=== PATIENT | female | born 1940 | race Caucasian/White ===

== ENCOUNTER 2021-11-24 18:21 | Inpatient (IN) | payer MEDICARE ==
[2021-11-24] MEDS ORDERED: Sodium Chloride 0.9% 10 ML Syringe FLUSH PRN (18:39)
[2021-11-24] MEDS ORDERED: Sodium Chloride 0.9% 1,000 ML IV ONE (19:47)
[2021-11-24 19:53] LABS: CORONAVIRUS COVID-19 NAA NEGATIVE (NEGATIVE)
[2021-11-24] MEDS ORDERED: cefTRIAXone 2 GM in Sodium Chloride 0.9% 100 ML IV ONE (20:07)
[2021-11-24] MEDS ORDERED: Azithromycin 250 MG Tab PO ONE (20:08)
[2021-11-24] MEDS ORDERED: Potassium Chloride 10 MEQ in Premix Bag 1 BAG IV SCH (20:15)
[2021-11-24] MEDS ORDERED: Sodium Chloride 0.9% 10 ML Syringe FLUSH ONE (20:28)
[2021-11-24] MEDS ORDERED: Iopamidol 755 Mg/ML 100 ML Bottle IVPUSH ONE (20:28)
[2021-11-24] MEDS ORDERED: Sodium Chloride 0.9% 100 ML IV SCH (20:30)
[2021-11-24] MEDS ORDERED: Docusate Sodium 100 MG Cap PO PRN (21:24)
[2021-11-24] MEDS ORDERED: Acetaminophen 325 MG Tab PO PRN (21:24)
[2021-11-24] MEDS ORDERED: oxyCODONE 5 MG Tab PO PRN (21:24)
[2021-11-24] MEDS ORDERED: Zolpidem 5 MG Tab PO PRN (21:24)
[2021-11-24] MEDS ORDERED: Dextrose 5%-0.45% NaCl 1,000 ML IV SCH (21:30)
[2021-11-24] MEDS: Enoxaparin 40 MG/0.4 ML Syringe SUBCUT SCH (23:12)
[2021-11-25] MEDS: Albuterol/Ipratropium 3.0-0.5 MG/3 ML Neb Soln NEB SCH ×4 (02:40→21:14)
[2021-11-25] MEDS: Codeine/guaiFENesin 10-100 MG/5 ML Syrup 5 ML Cup PO PRN ×3 (04:25→15:05)
[2021-11-25] MEDS: Azithromycin 250 MG Tab PO SCH (08:47)
[2021-11-25] MEDS ORDERED: cefTRIAXone 1 GM in Sodium Chloride 0.9% 100 ML IV SCH (20:00)
[2021-11-25] MEDS: Enoxaparin 40 MG/0.4 ML Syringe SUBCUT SCH ×2 (20:54→21:15)
[2021-11-26] MEDS: Albuterol/Ipratropium 3.0-0.5 MG/3 ML Neb Soln NEB SCH ×2 (03:01→08:57)
[2021-11-26] MEDS: Codeine/guaiFENesin 10-100 MG/5 ML Syrup 5 ML Cup PO PRN (03:32)
[2021-11-26] MEDS: Azithromycin 250 MG Tab PO SCH (08:21)
== END 2021-11-26 11:28 | disposition home or self-care (01) | DRG 193 ==
LOC: JD.ED 18:21 → JD.MS 21:25
PROVIDERS: ADMIT Hospitalist; ATTEND Hospitalist
DX: J18.9 Pneumonia, unspecified organism (principal); J96.01 Acute respiratory failure with hypoxia; E44.0 Moderate protein-calorie malnutrition; Z68.1 Body mass index [BMI] 19.9 or less, adult; D64.9 Anemia, unspecified; Z20.822 Contact with and (suspected) exposure to COVID-19; F32.89 Other specified depressive episodes; E03.9 Hypothyroidism, unspecified; Z86.16 Personal history of COVID-19; Z90.710 Acquired absence of both cervix and uterus
CPT/HCPCS: 0240U; 36415; 71045; 71045-26; 71275; 71275-26; 80048; 80053; 83605; 83735; 83880; 84484; 85025; 85379; 86140; 87040; 93005; 94640; 94667; 94668; 94761; 96365; 97161-GP; 99221; 99231; 99239; 99285-25; A9270-GY; J0696; J1650; J3490; J7030; J7042; J7620-GY; Q9967